=== PATIENT | female | born 1975 | race Caucasian/White ===

== ENCOUNTER 2016-08-19 09:42 | Emergency (ER) | payer BC ==
[2016-08-19 09:57] VITALS: BP 134/84
[2016-08-19] MEDS ORDERED: Ketorolac INJ* 60 MG/2 ML VIAL IM ONE (10:21)
[2016-08-19] MEDS ORDERED: Ondansetron ODT TAB* 4 MG PO ONE (10:22)
--- NOTE | 2016-08-19 11:10 | UC ---
I, Lico,Brent, scribed for Ulices Adams MD on 08/19/16 at 1022 . Abdominal Pain Female HPI - HPI Summary HPI Summary: This 40 y/o female presents to [facility] with chief complaint of acute diffuse abd pain since early this morning. Pt reports n/v with blood noted in emesis. She denies any dysuria or any other urinary symptoms. PO intake makes symptoms worse. PSHx includes recent hysterectomy a month ago. Family member present at bedside reports EtOH consumption last night for inauguration. She is current heavy everyday smoker and occasional drinker. FHx is positive for respiratory dz and HTN. - History of Current Complaint Chief Complaint: UC Stated Complaint: VOMITING BLOOD Time Seen by Provider: 08/19/16 10:10 Hx Obtained From: Patient, Family/Fleet Administrative Assistant - male family member present at bedside, Medical Records Hx Last Menstrual Period: 03/05/16 Onset/Duration: Sudden Onset, Lasting Hours, Still Present Timing: Constant Severity Initially: Moderate Severity Currently: Moderate Location: Diffuse Radiates: No Character: Dull Aggravating Factor(s): Food Alleviating Factor(s): Nothing Associated Signs and Symptoms: Positive: Nausea - blood noted in emesis, Vomiting. Negative: Urinary Symptoms Allergies/Adverse Reactions: Allergies Allergy/AdvReac Type Severity Reaction Status Date / Time Penicillins [PCN] Allergy Swelling Verified 08/19/16 09:49 Shellfish Allergy Allergy Anaphylatic Verified 08/19/16 09:49 Shock Environmental allergies Allergy Sneezing Uncoded 08/19/16 09:49 hormones Allergy Anaphylatic Uncoded 08/19/16 09:49 Shock iodine suspected due to Allergy Unknown Uncoded 08/19/16 09:49 shellfish a Reaction Details Home Medications: Home Medications oxyCODONE/Acetamin 10/325(NF) [Percocet 10/325 (NF)] 1 tab PO Q4H PRN 08/19/16 [ History Confirmed 08/19/16] PMH/Surg Hx/FS Hx/Imm Hx Respiratory History Of: Reports: Asthma - Surgical History Surgical History: Yes Surgery Procedure, Year, and Place: Hysterectomy, t/a, ear tubes as child; 2012 and 11/2013 d and c - Family History Known Family History: Positive: Hypertension, Respiratory Disease - Social History Alcohol Use: Occasionally Alcohol Amount: had alcohol last night Substance Use Type: None Smoking Status (MU): Heavy Every Day Tobacco Smoker Amount Used/How Often: 1 1/2ppd Household Exposure Type: Cigarettes - Immunization History Most Recent Tetanus Shot: July 2012 Review of Systems Constitutional: Negative Skin: Negative Eyes: Negative ENT: Negative Respiratory: Negative Cardiovascular: Negative Gastrointestinal: Abdominal Pain, Vomiting - blood noted in emesis Genitourinary: Negative Motor: Negative Neurovascular: Negative Musculoskeletal: Negative Neurological: Negative Psychological: Negative All Other Systems Reviewed And Are Negative: Yes Physical Exam Triage Information Reviewed: Yes Appearance: Ill-Appearing, Pain Distress, Thin Vital Signs: Initial Vital Signs Temp 99.1 F 08/19/16 09:52 Pulse 85 08/19/16 09:52 Resp 16 08/19/16 09:52 BP 134/84 08/19/16 09:52 Pulse Ox 99 08/19/16 09:52 Vital Signs Reviewed: Yes Eyes: Positive: Conjunctiva Clear ENT: Positive: Normal ENT inspection, Hearing grossly normal, Pharynx normal Neck exam: Normal Neck: Positive: Supple, Nontender, No Lymphadenopathy Respiratory: Positive: Chest non-tender, Lungs clear, Normal breath sounds, No respiratory distress Cardiovascular: Positive: RRR, No Murmur, Pulses Normal Abdomen Description: Positive: Soft, Guarding, Other: - sever diffuse tenderness. Negative: CVA Tenderness (R), CVA Tenderness (L), Distended Bowel Sounds: Positive: Present Musculoskeletal Exam: Normal Musculoskeletal: Positive: Strength Intact, ROM Intact, No Edema Neurological Exam: Normal Neurological: Positive: Alert Skin Exam: Normal Re-Evaluation - Re-Evaluation First Eval Re-Evaluation Time: 11:01 Change: Unchanged Comment: ERP in room to re-evaluate pt. Pt states that her abd pain and nausea persist after toradol injection and zofran. Abd Pain Female Course/Dx - Course Course Of Treatment: sever abdominal pain since 3 am . 8 mg Zofran and 60 mg IM tordol was given with no improvment . cont. to have pain 10 out of 10 ,. will have her go to ED . pt. wants to go with private car. spoke to Sabine ORR at [facility] about the pt. - Differential Dx/Diagnosis Provider Diagnoses: abdominal pain. gastritis - Physician Notification/Consults [facility]2 AM. Time Discussed With Above Provider: 11:02 Discharge - Discharge Plan Condition: Stable Disposition: AGAINST MEDICAL ADVICE The documentation as recorded by the Lico terry Soohyun accurately reflects the service I personally performed and the decisions made by , Ulices Adams MD.
== END 2016-08-19 11:09 | disposition left against medical advice (07) ==
LOC: UCEAST 09:42
DX: K29.70 Gastritis, unspecified, without bleeding (principal); R10.9 Unspecified abdominal pain; F17.210 Nicotine dependence, cigarettes, uncomplicated; Z87.09 Personal history of other diseases of the respiratory system
CPT/HCPCS: 96372; A9270-GY; J1885

== ENCOUNTER 2016-09-07 08:48 | Emergency (ER) | payer BC ==
[2016-09-07 09:13] VITALS: BP 104/81
[2016-09-07] MEDS ORDERED: HYDROcodone/ACETAMIN 5-325 MG* 1 TAB PO ONE (10:06)
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
--- NOTE | 2016-09-07 10:48 | RAD ---
Indication: Left shoulder pain. 3 views of the left shoulder demonstrates no fracture. No other bone or joint abnormality is noted. IMPRESSION: No fracture of the left shoulder is noted.
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
== END 2016-09-07 11:10 | disposition home or self-care (01) ==
LOC: UCCORT 08:48
DX: S06.0X0A Concussion without loss of consciousness, initial encounter (principal); S16.1XXA Strain of muscle, fascia and tendon at neck level, initial encounter; S46.912A Strain of unspecified muscle, fascia and tendon at shoulder and upper arm level, left arm, initial encounter; F17.210 Nicotine dependence, cigarettes, uncomplicated; V48.5XXA Car driver injured in noncollision transport accident in traffic accident, initial encounter; Y92.9 Unspecified place or not applicable; Z88.0 Allergy status to penicillin
CPT/HCPCS: 72020; 72050; 99213; G0463

== ENCOUNTER 2019-03-29 08:06 | Emergency (ER) | payer BC, OTHER | END 2019-03-29 08:17 | disposition left against medical advice (07) | LOC: UCCORT 08:06 | DX: R11.2 Nausea with vomiting, unspecified (principal); R68.83 Chills (without fever); Z53.21 Procedure and treatment not carried out due to patient leaving prior to being seen by health care provider ==